=== PATIENT | female | born 1960 | race Caucasian/White ===

== ENCOUNTER 2017-04-30 12:39 | Emergency (ER) | payer MEDICAID ==
[~2017-04-30] VITALS: Ht 175.3 cm; Wt 113.6 kg
[~2017-04-30 12:39] MED LIST: ASPI-1265 PO; AZIT250T PO; MULT-342 PO
[2017-04-30] MEDS ORDERED: TETanus/Pertussis (Acell)/Diphther VAC/PF (Tdap-Adult) 0.5ml syringe IM ONE (12:55)
[2017-04-30] MEDS ORDERED: BUPIVAcaine/PF 2.5 mg/ml (0.25%) 30ml vial IJ ONE (12:55)
[2017-04-30] MEDS ORDERED: clindamycin 150mg capsule PO ONE (14:10)
[2017-04-30] MEDS ORDERED: CLIN-80 PO (14:10)
[2017-04-30 14:36] VITALS: BP 126/62
[2017-05-01] MEDS ORDERED: HYDR-565 PO (00:41)
[2017-05-01] MEDS ORDERED: SULF1TAB49 PO (00:41)
== END 2017-04-30 14:37 | disposition home or self-care (01) ==
LOC: ER 12:39
DX: L02.511 Cutaneous abscess of right hand (principal); L03.011 Cellulitis of right finger; Z79.82 Long term (current) use of aspirin
CPT/HCPCS: 26010; 90471; 90715; 99283; J3490; A6449

== ENCOUNTER 2017-05-01 00:16 | Emergency (ER) | payer MEDICAID ==
[~2017-05-01] VITALS: Ht 175.3 cm; Wt 113.0 kg
[~2017-05-01 00:16] MED LIST changes: +CLIN-80 PO
[2017-05-01] MEDS ORDERED: sulfamethoxazole/trimethoprim DS (800/160mg) tablet PO ONE (00:40)
[2017-05-01] MEDS ORDERED: HYDROcodone/acetaminophen 10/325mg tab PO ONE (00:40)
[2017-05-01] MEDS ORDERED: SULF1TAB49 PO (00:41)
[2017-05-01] MEDS ORDERED: HYDR-565 PO (00:41)
[2017-05-01 00:52] VITALS: BP 150/77
== END 2017-05-01 00:50 | disposition home or self-care (01) ==
LOC: ER 00:17
DX: L02.511 Cutaneous abscess of right hand (principal); L03.011 Cellulitis of right finger; Z79.82 Long term (current) use of aspirin
CPT/HCPCS: 99283; A6449

== ENCOUNTER 2017-05-27 07:05 | Inpatient (IN) | payer MEDICAID ==
[~2017-05-27] VITALS: Ht 175.3 cm; Wt 107.0 kg
[2017-05-27] VITALS (14 sets, daily range): BP systolic 111–158; BP diastolic 58–98
[~2017-05-27 07:05] MED LIST changes: +HYDR-565 PO; +SULF1TAB49 PO
[2017-05-27] MEDS ORDERED: vancomycin/NS 1 GM ADD-VANTAGE 250 ML IV ONE (07:40)
[2017-05-27] MEDS ORDERED: ondansetron/PF 4mg/2ml inj IV ONE (07:40)
[2017-05-27] MEDS ORDERED: piperacillin/tazo 3.375gm/50ml 50 ML IV ONE (07:40)
[2017-05-27] MEDS ORDERED: morphine 2 MG/ML inj. syringe IV PRN ×3 (07:40→15:20)
[2017-05-27] MEDS ORDERED: morphine 4 MG/ML inj SYRINge IV PRN (08:50)
[2017-05-27] MEDS ORDERED: normal saline 1000ML IV soln IV ONE (09:10)
[2017-05-27] MEDS ORDERED: ketorolac trometh. 30mg/ml inj. IV ONE (09:10)
[2017-05-27 09:58] LABS: BASOPHILS % (AUTO) 0.5 % (0-1); EOSINOPHILS # (AUTO) 0.2 X10'3 (0-0.9); EOSINOPHILS % (AUTO) 2.3 % (0-6); HEMATOCRIT 41.9 % (35.0-45.0); HEMOGLOBIN 14.6 g/dl (12.0-16.0); LYMPHOCYTES % (AUTO) 30.9 % (21-51); MEAN CORPUSCULAR HEMOGLOBIN 28.8 PG (27.0-31.0); MEAN CORPUSCULAR HGB CONC 34.8 % (33.0-36.5); MEAN CORPUSCULAR VOLUME 82.8 FL (78-98); MEAN PLATELET VOLUME 9.7 FL (7.4-10.4); MONOCYTES # (AUTO) 0.5 X10'3 (0-0.9); MONOCYTES % (AUTO) 7.2 % (2-12); NEUTROPHILS # (AUTO) 3.9 X10'3 (1.8-7.7); NEUTROPHILS % (AUTO) 59.1 % (42-75); PLATELET COUNT 226 X10'3 (140-440); RED BLOOD COUNT 5.06 X10'6 (4.20-5.60); RED CELL DISTRIBUTION WIDTH 15.1 % (11.5-14.5); WHITE BLOOD COUNT 6.5 X10'3 (4.5-11.0)
[2017-05-27 10:06] LABS: ALANINE AMINOTRANSFERASE 37 U/L (12-78); ALBUMIN 3.8 G/DL (3.4-5.0); ALKALINE PHOSPHATASE 101 IU/L (46-116); ANION GAP 12 (8-16); ASPARTATE AMINO TRANSFERASE 25 U/L (10-37); BILIRUBIN,TOTAL 0.3 MG/DL (0.1-1.0); BLOOD UREA NITROGEN 16 MG/DL (7-18); CALCIUM 9.3 MG/DL (8.5-10.1); CHLORIDE 104 MMOL/L (99-107); GLUCOSE 110 MG/DL (70-104); POTASSIUM 3.9 MMOL/L (3.5-5.1); SODIUM 141 MMOL/L (135-145); TOTAL CARBON DIOXIDE 24.8 MMOL/L (24-32); TOTAL PROTEIN 7.8 G/DL (6.4-8.2); eGFR 75 ML/MIN
[2017-05-27] MEDS: normal saline 1000ml 1,000 ML IV SCH ×2 (10:39→20:39)
[2017-05-27] MEDS ORDERED: potassium Cl 20 mEq SR tablet PO PRN ×2 (10:40)
[2017-05-27] MEDS ORDERED: magnesium Cl slow-release 64mg tablet PO PRN (10:40)
[2017-05-27] MEDS ORDERED: acetaminophen 325mg tablet PO PRN (10:40)
[2017-05-27] MEDS ORDERED: magnesium 4gm in 100ml NS 100 ML IV PRN (10:40)
[2017-05-27] MEDS ORDERED: magnesium 2GM in 50ml NS 50 ML IV PRN (10:40)
[2017-05-27] MEDS ORDERED: magnesium hydroxide 30ml (MOM) UD suspension PO PRN (10:40)
[2017-05-27] MEDS ORDERED: HYDROmorphone 1 mg/ml syringe IV PRN (10:40)
[2017-05-27] MEDS ORDERED: mag hydrox/Alum hydrox/simeth 30ml oral suspension PO PRN (10:40)
[2017-05-27] MEDS ORDERED: potassium Cl 40MEQ/NS 500ml 500 ML IV PRN ×2 (10:40)
[2017-05-27] MEDS: cefTRIAXone 1g/NS 100ml IVPB 100 ML IV SCH (12:49)
[2017-05-27] MEDS ORDERED: ringers solution, lacted 1,000 ML IV SCH (15:16)
[2017-05-27] MEDS ORDERED: ondansetron/PF 4mg/2ml inj IV PRN (15:20)
[2017-05-27] MEDS ORDERED: fentaNYL/PF 50MCG/1 ML 2ML syringe IV PRN ×2 (15:20)
[2017-05-27] MEDS ORDERED: labetalol 5mg/ml 20ml inj. IV PRN (15:20)
[2017-05-27] MEDS ORDERED: hydrALAZINE 20mg/ml inj. IV PRN (15:20)
[2017-05-27] MEDS ORDERED: BUPIVAcaine/PF 2.5 mg/ml (0.25%) 30ml vial ONE ×2 (15:41→16:11)
[2017-05-27] MEDS ORDERED: fentaNYL/PF 50MCG/1 ML 2ML syringe ONE (16:10)
[2017-05-27] MEDS ORDERED: midazolam 2 mg/2 ml injection ONE ×2 (16:10→16:11)
[2017-05-27] MEDS ORDERED: ondansetron/PF 4mg/2ml inj ONE ×2 (16:11→16:21)
[2017-05-27] MEDS ORDERED: LIDOcaine 1%/PF (10mg/ml) 5ml vial ONE (16:11)
[2017-05-27] MEDS ORDERED: propofol inj 20 ML IV ONE (16:11)
[2017-05-27] MEDS ORDERED: dexamethasone sod phosphate 4mg/ml inj. ONE (16:21)
[2017-05-27] MEDS ORDERED: ketorolac trometh. 30mg/ml inj. ONE (16:41)
[2017-05-27] MEDS ORDERED: HYDROmorphone inj. 0.5 MG/0.5 ML DISP.SYRIN ONE (23:33)
[2017-05-28] MEDS: normal saline 1000ml 1,000 ML IV SCH ×2 (02:17→17:33)
[2017-05-28 05:00] VITALS: BP 125/58
[2017-05-28 05:18] LABS: BASOPHILS % (AUTO) 0.3 % (0-1); EOSINOPHILS % (AUTO) 0 % (0-6); HEMATOCRIT 39.4 % (35.0-45.0); HEMOGLOBIN 13.7 g/dl (12.0-16.0); LYMPHOCYTES # (AUTO) 1.1 X10'3 (1.1-4.8); LYMPHOCYTES % (AUTO) 12.1 % (21-51); MEAN CORPUSCULAR HEMOGLOBIN 29.1 PG (27.0-31.0); MEAN CORPUSCULAR HGB CONC 34.9 % (33.0-36.5); MEAN CORPUSCULAR VOLUME 83.4 FL (78-98); MEAN PLATELET VOLUME 9.8 FL (7.4-10.4); MONOCYTES # (AUTO) 0.1 X10'3 (0-0.9); MONOCYTES % (AUTO) 0.7 % (2-12); NEUTROPHILS # (AUTO) 7.7 X10'3 (1.8-7.7); NEUTROPHILS % (AUTO) 86.9 % (42-75); PLATELET COUNT 194 X10'3 (140-440); RED BLOOD COUNT 4.72 X10'6 (4.20-5.60); RED CELL DISTRIBUTION WIDTH 15.1 % (11.5-14.5); WHITE BLOOD COUNT 8.8 X10'3 (4.5-11.0)
[2017-05-28 05:51] LABS: ALANINE AMINOTRANSFERASE 38 U/L (12-78); ALBUMIN/GLOBULIN RATIO 0.8 (1.1-1.5); ALKALINE PHOSPHATASE 87 IU/L (46-116); ANION GAP 13 (8-16); ASPARTATE AMINO TRANSFERASE 19 U/L (10-37); BILIRUBIN,TOTAL 0.2 MG/DL (0.1-1.0); BLOOD UREA NITROGEN 17 MG/DL (7-18); BUN/CREATININE RATIO 17.7 (6.6-38.0); CALCIUM 8.7 MG/DL (8.5-10.1); CHLORIDE 104 MMOL/L (99-107); CREATININE 0.96 MG/DL (0.40-0.90); GLUCOSE 188 MG/DL (70-104); MAGNESIUM 1.7 MG/DL (1.5-2.4); POTASSIUM 3.8 MMOL/L (3.5-5.1); SODIUM 141 MMOL/L (135-145); TOTAL CARBON DIOXIDE 23.7 MMOL/L (24-32); TOTAL PROTEIN 6.7 G/DL (6.4-8.2); eGFR 61 ML/MIN
[2017-05-28 07:11] VITALS: BP 111/61
[2017-05-28] MEDS: K and/or MAG REPLACEMENT MC SCH (07:46)
[2017-05-28] MEDS ORDERED: HYDROmorphone inj. 0.5 MG/0.5 ML DISP.SYRIN ONE (08:53)
[2017-05-28] MEDS: cefTRIAXone 1g/NS 100ml IVPB 100 ML IV SCH (08:55)
[2017-05-28] MEDS ORDERED: VANCOMYCIN LEVEL IV ONE (09:30)
[2017-05-28 10:00] VITALS: BP 130/67
[2017-05-28] MEDS ORDERED: HYDROcodone/acetaminophen 10/325mg tab PO PRN (10:50)
[2017-05-28] MEDS: HYDROcodone/acetaminophen 10/325mg tab PO PRN ×3 (11:56→20:15)
[2017-05-28 14:00] VITALS: BP 129/59
[2017-05-28] MEDS: HYDROmorphone inj. 0.5 MG/0.5 ML DISP.SYRIN IV PRN ×2 (14:17→17:48)
[2017-05-28] MEDS: lactobacillus rhamnosus 10,000 MMU CELLS/CAPSULE PO SCH (17:33)
[2017-05-28 18:00] VITALS: BP 122/68
[2017-05-28] MEDS: ondansetron/PF 4mg/2ml inj IV PRN (18:55)
[2017-05-28 22:00] VITALS: BP 140/80
[2017-05-29] MEDS: HYDROcodone/acetaminophen 10/325mg tab PO PRN ×3 (00:17→10:46)
[2017-05-29] MEDS: normal saline 1000ml 1,000 ML IV SCH ×2 (05:04→12:39)
[2017-05-29 06:00] VITALS: BP 113/60
[2017-05-29] MEDS: lactobacillus rhamnosus 10,000 MMU CELLS/CAPSULE PO SCH (07:12)
[2017-05-29] MEDS: cefTRIAXone 1g/NS 100ml IVPB 100 ML IV SCH (07:13)
[2017-05-29 07:39] LABS: BASOPHILS % (AUTO) 0.5 % (0-1); EOSINOPHILS # (AUTO) 0.1 X10'3 (0-0.9); EOSINOPHILS % (AUTO) 1.4 % (0-6); HEMATOCRIT 37.3 % (35.0-45.0); HEMOGLOBIN 12.8 g/dl (12.0-16.0); LYMPHOCYTES # (AUTO) 2.5 X10'3 (1.1-4.8); LYMPHOCYTES % (AUTO) 32.5 % (21-51); MEAN CORPUSCULAR HEMOGLOBIN 28.8 PG (27.0-31.0); MEAN CORPUSCULAR HGB CONC 34.2 % (33.0-36.5); MEAN CORPUSCULAR VOLUME 84.2 FL (78-98); MEAN PLATELET VOLUME 9.4 FL (7.4-10.4); MONOCYTES # (AUTO) 0.5 X10'3 (0-0.9); MONOCYTES % (AUTO) 6.6 % (2-12); NEUTROPHILS # (AUTO) 4.5 X10'3 (1.8-7.7); PLATELET COUNT 185 X10'3 (140-440); RED BLOOD COUNT 4.43 X10'6 (4.20-5.60); RED CELL DISTRIBUTION WIDTH 15.8 % (11.5-14.5); WHITE BLOOD COUNT 7.7 X10'3 (4.5-11.0)
[2017-05-29 08:02] LABS: ALANINE AMINOTRANSFERASE 33 U/L (12-78); ALBUMIN 2.9 G/DL (3.4-5.0); ALBUMIN/GLOBULIN RATIO 0.9 (1.1-1.5); ALKALINE PHOSPHATASE 78 IU/L (46-116); ANION GAP 10 (8-16); ASPARTATE AMINO TRANSFERASE 14 U/L (10-37); BILIRUBIN,TOTAL 0.2 MG/DL (0.1-1.0); BLOOD UREA NITROGEN 18 MG/DL (7-18); BUN/CREATININE RATIO 25.4 (6.6-38.0); CALCIUM 8.4 MG/DL (8.5-10.1); CHLORIDE 107 MMOL/L (99-107); CREATININE 0.71 MG/DL (0.40-0.90); GLUCOSE 100 MG/DL (70-104); MAGNESIUM 1.7 MG/DL (1.5-2.4); SODIUM 141 MMOL/L (135-145); TOTAL PROTEIN 6.3 G/DL (6.4-8.2); eGFR 86 ML/MIN
[2017-05-29] MEDS: K and/or MAG REPLACEMENT MC SCH (08:07)
[2017-05-29] MEDS: ondansetron/PF 4mg/2ml inj IV PRN (08:15)
[2017-05-29 10:00] VITALS: BP 132/83
[2017-05-29] MEDS ORDERED: LEVO500T2 PO (11:51)
[2017-05-29] MEDS ORDERED: METR250T PO (11:51)
[2017-05-30] MEDS ORDERED: VANCOMYCIN LEVEL IV NR (01:30)
== END 2017-05-29 13:05 | disposition home or self-care (01) | DRG 316 ==
LOC: ER 07:05 → ED HOLD 10:39 → EDBEDREQ 13:13 → ORTHO 4S 14:06
PROVIDERS: ADMIT Internal Medicine; ATTEND Internal Medicine
PROC: 0X6Q0Z2 Detachment at Right Middle Finger, Mid, Open Approach (ICD-10-PCS; principal; 2017-05-27 16:00)
DX: M86.8X4 Other osteomyelitis, hand (principal); F15.10 Other stimulant abuse, uncomplicated; M65.841 Other synovitis and tenosynovitis, right hand; L03.011 Cellulitis of right finger; M65.9 Synovitis and tenosynovitis, unspecified; Z60.2 Problems related to living alone; Z79.82 Long term (current) use of aspirin; Z79.899 Other long term (current) drug therapy
CPT/HCPCS: 36415; 73140; 80053; 80202; 83605; 83735; 84145; 85025; 87040; 87070; 96365; 96375; 99285; A6222; A6449; A7000; J0696; J1100; J1170; J1885; J2001; J2250; J2405; J2543; J2704; J3010; J3370; J3490; J7030; J7120